=== PATIENT | female | born 1960 | race Asian ===

== ENCOUNTER 2022-05-27 07:43 | Emergency (ER) | payer BC, OTHER ==
[~2022-05-27] VITALS: Ht 162.6 cm; Wt 63.5 kg
[2022-05-27] MEDS ORDERED: ONDANSETRON HCL/PF 4 MG/2 ML VIAL ONE ×2 (08:04→08:29)
--- NOTE | 2022-05-27 08:10 | NUR ---
DR BEARDEN AT BEDSIDE FOR EVAL; ORDER FOR ZOFRAN 4MG IV NOTED, ORDER READ BACK AND VERIFIED
--- NOTE | 2022-05-27 08:11 | NUR ---
IV LINE ESTABLISHED ON LAC #20, BLOOD DRAWN AND SENT TO LAB
[2022-05-27] MEDS ORDERED: ONDANSETRON HCL/PF 4 MG/2 ML VIAL IVP ONE (08:30)
[2022-05-27] MEDS ORDERED: MECLIZINE HCL 25 MG TABLET ONE (08:30)
[2022-05-27] MEDS ORDERED: ONDANSETRON HCL/PF 4 MG/2 ML VIAL IV ONE (08:30)
[2022-05-27] MEDS ORDERED: MECLIZINE HCL 12.5 MG TABLET PO ONE (08:30)
[2022-05-27] MEDS ORDERED: IV NS 0.9% 1,000 ML BAG IV ONE (08:30)
[2022-05-27 08:31] LABS: BASOPHILS % (AUTO) 0.6 % (0.0-2.0); EOSINOPHILS % (AUTO) 2.8 % (0.0-6.0); HEMATOCRIT 41 % (33-45); HEMOGLOBIN 13.9 g/dL (11.5-14.8); LYMPHOCYTES # (AUTO) 1.4 K/uL (0.8-4.8); LYMPHOCYTES % (AUTO) 19.1 % (20.0-44.0); MEAN CORPUSCULAR HGB CONC 34 g/dl (31.0-36.0); MEAN CORPUSCULAR VOLUME 89 fL (82-100); MONOCYTES # (AUTO) 0.3 K/uL (0.1-1.30); MONOCYTES % (AUTO) 4.5 % (2.0-12.0); NEUTROPHILS # (AUTO) 5.3 K/uL (1.8-8.9); PLATELET COUNT (AUTO) 235 K/uL (150-450); WHITE BLOOD COUNT (AUTO) 7.3 K/uL (4.3-11.0)
--- NOTE | 2022-05-27 08:39 | NUR ---
TECH AT BEDSIDE FOR EKG
[2022-05-27 08:49] LABS: ALANINE AMINOTRANSFERASE 42 U/L (12-78); ALBUMIN 4.3 g/dL (3.4-5.0); ALKALINE PHOSPHATASE 77 U/L (46-116); ASPARTATE AMINOTRANSFERASE 30 U/L (15-37); BILIRUBIN,DIRECT 0.2 mg/dL (0.0-0.2); BILIRUBIN,TOTAL 0.8 mg/dL (0.2-1.0); CARBON DIOXIDE 27 mmol/L (21-32); CHLORIDE 103 mmol/L (98-107); CREATININE 0.9 mg/dL (0.6-1.3); GLUCOSE 156 mg/dL (74-106); POTASSIUM 4.1 mmol/L (3.5-5.1); SODIUM SERUM 140 mmol/L (136-145); TOTAL PROTEIN, SERUM 7.9 g/dL (6.4-8.2); UREA NITROGEN, BLOOD 19 mg/dL (7-18)
[2022-05-27 08:54] LABS: CALCIUM, SERUM 8.6 mg/dL (8.5-10.1)
[2022-05-27] MEDS ORDERED: IOHEXOL-350 100 ML VIAL IV ONE (09:31)
[2022-05-27] MEDS ORDERED: CT SWABBABLE VALVE TRANS SET 1 EA INFUS.SET MC ONE (09:31)
[2022-05-27] MEDS ORDERED: IV NS 0.9% 250 ML IV ONE (09:31)
[2022-05-27 10:21] LABS: BILIRUBIN,URINE NEGATIVE (NEGATIVE); COLOR,URINE YELLOW (YELLOW); LEUKOCYTE ESTERASE ,URINE NEGATIVE (NEGATIVE); NITRITE, URINE NEGATIVE (NEGATIVE); PROTEIN,URINE NEGATIVE (NEGATIVE); UGLUCOSE NEGATIVE (NEGATIVE); UROBILINOGEN,URINE 0.2 EU/dL (0.2)
--- NOTE | 2022-05-27 11:20 | NUR ---
URINE SAMPLE COLLECTED AND SENT TO LAB
[2022-05-27] MEDS ORDERED: MECL-159 PO (14:53)
[2022-05-27] MEDS ORDERED: ONDA4TAB11 PO (14:53)
--- NOTE | 2022-05-27 15:28 | NUR ---
IV removed. Catheter intact and site benign. Pressure and 4x4 applied to site. No bleeding noted.
[2022-05-27 15:31] VITALS: BP 128/74
--- NOTE | 2022-05-27 15:31 | NUR ---
Patient discharged to home in stable condition. Written and verbal after care instructions given. Patient verbalizes understanding of instruction.
== END 2022-05-27 15:32 | disposition home or self-care (01) ==
LOC: ER 07:45
DX: R42 Dizziness and giddiness (principal)
CPT/HCPCS: 99285; 70498; 96374; 96361; 93005; 70496; 85025; 80048; 80076; 81003; 36415; 84484; 70450; J8597; J2405 ×2; J7030; J7050; Q9967